=== PATIENT | male | born 2000 | race Hispanic/Latino ===

== ENCOUNTER 2023-02-22 21:09 | Emergency (ER) | payer OTHER ==
[~2023-02-22 21:09] MED LIST: Iopamidol-370 76% 500 ML MDV (1 ML CHARGE) ONE
[2023-02-22] MEDS ORDERED: Ketorolac Tromethamine 30 MG/ML VIAL ONE (21:22)
[2023-02-22] MEDS ORDERED: Ondansetron PF 4 MG/2 ML Vial ONE (21:22)
[2023-02-22 21:34] LABS: Hematocrit 45.1 % (42.0-52.0); Mean Corpuscular HGB CONC 33.3 g/dL (32.0-36.0); Mean Corpuscular Volume 90.2 fl (78.0-98.0); Mean Platelet Volume 9.8 fL (7.4-10.4); Platelet Count 287 10x3/uL (130-400); RBC Distribution Width 12.4 % (11.5-14.5); White Blood Cell (WBC) Count 25.7 10x3/uL (4.8-10.8)
[2023-02-22 21:37] LABS: Delete Auto Diff?? YES; Manual Diff?? YES
[2023-02-22 21:59] LABS: Acetaminophen Less than 10 mcg/mL (10.0-30.0); Alcohol Less than 10.0 mg/dL (Less than 10); Salicylate Less than 8.0 mg/dL (15.0-30.0)
[2023-02-22 22:01] LABS: ALT (SGPT) 8 U/L (8-55); AST (SGOT) 17 U/L (5-34); Albumin 4.3 g/dL (3.5-5.0); Alkaline Phosphatase 123 U/L (50-130); Anion Gap 15 mmol/L (10-20); BUN (Urea Nitrogen) 17 mg/dL (8.9-20.6); Bilirubin, Total 0.5 mg/dL (0.2-1.2); Calc. Creatinine Clearance 0 mL/min (70-130); Calcium 8.8 mg/dL (7.8-10.44); Carbon Dioxide 20 mmol/L (22-29); Chloride 106 mmol/L (98-107); Estimated GFR 115; Globulin 3.1 g/dL (2.4-3.5); Glucose 135 mg/dL (70-105); Potassium 3.4 mmol/L (3.5-5.1); Protein, Total 7.4 g/dL (6.0-8.3); Sodium 138 mmol/L (136-145)
[2023-02-22 22:07] LABS: Band 6 % (5-11); CellaVision Operator ID lab.abc; Lymphocytes 8 % (28-48); Monocytes 5 % (0-4); Neutrophil 81 % (31-61); Platelet Adequacy Comment Platelets Normal; RBC Morphology Within Normal Limits; Smudge Cells 26.7 %; Total Cell Count 101
[2023-02-22] MEDS ORDERED: Acetaminophen 500 MG TAB ONE (23:38)
== END 2023-02-22 23:45 | disposition home or self-care (01) ==
LOC: ERS 21:09
DX: S06.0X0A Concussion without loss of consciousness, initial encounter (principal); V89.2XXA Person injured in unspecified motor-vehicle accident, traffic, initial encounter
CPT/HCPCS: 36415; 70450; 71045; 71260; 72125; 74177; 80053; 80307; 85025; 96374; 96375; G0390; J1885; J2405; Q9967